=== PATIENT | male | born 1970 | race Hispanic/Latino ===

== ENCOUNTER 2019-04-21 14:57 | Emergency (ER) | payer SELFPAY ==
[~2019-04-21] VITALS: Ht 157.5 cm; Wt 54.4 kg
== END 2019-04-21 18:30 | disposition home or self-care (01) ==
LOC: ED 14:57
DX: N20.1 Calculus of ureter (principal); E87.6 Hypokalemia
CPT/HCPCS: 74176; 80053; 81001; 85025; 96374; 96375; 99284-25; J1885; J2405